=== PATIENT | male | born 1965 | race Caucasian/White ===

== ENCOUNTER 2023-10-19 14:08 | Outpatient (AMB) | payer OTHER, SELFPAY ==
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
[2023-10-19 14:18] VITALS: BP 172/84; PULSE 72; O2SAT 98; BMI 34.2
== END 2023-10-19 14:39 | disposition home or self-care (01) ==
PROVIDERS: PCP Internal Medicine; Referring Provider Internal Medicine; Visit Provider Registered Nurse Emergency
DX: M25.551 Pain in right hip (principal)
CPT/HCPCS: 99204

== ENCOUNTER → 2023-10-19 14:08 | Outpatient (BNVA) | payer OTHER, SELFPAY | PROVIDERS: PCP Internal Medicine; Referring Provider Internal Medicine; Visit Provider Registered Nurse Emergency ==

== ENCOUNTER 2023-12-12 07:20 | Outpatient (REF) | payer OTHER, SELFPAY ==
--- NOTE | ~2023-12-12 | FL_ITS ---
EXAMINATION: XR FLUOROSCOPY WITH IMAGES CLINICAL INFORMATION: Right hip pain. COMPARISON: None available. TECHNIQUE: Fluoroscopy Supervised By: Dr. Ziggy Duvall. Fluoroscopy Time: 0.2 minutes. Cumulative Dose: 5.46 mGy. DAP: 0.0949 mGym2. Images: 2. FINDINGS: Intraoperative fluoroscopy and spot films were performed during a procedure in the OR. A needle is seen in the right hip joint with intra-articular contrast media Please correlate with Dr. Duvall's report for complete details. FL/FL guidance in treatment room IMPRESSION: Intraoperative fluoroscopy and spot films were obtained. Please see Eloina's report for complete details.
== END 2023-12-12 07:21 | disposition home or self-care (01) ==
LOC: CF 07:20
PROVIDERS: Visit Provider Anesthesiology
DX: M25.551 Pain in right hip (principal)
CPT/HCPCS: 20610; J2795; J3301; Q9967

== ENCOUNTER 2023-12-12 08:08 | Outpatient (AMB) | payer OTHER, SELFPAY ==
[2023-12-12 08:09] VITALS: BP 160/80; PULSE 72; RESP 16; O2SAT 97; BMI 33.4
--- NOTE | 2023-12-12 08:09 | MHC.OFFVIS ---
Vital Signs 12/12/23 08:09 12/12/23 08:44 Height 5 ft 8 in 5 ft 8 in Weight 220 lb 220 lb BMI 33.4 33.4 BP 160/80 H 185/80 H Blood Pressure Location Rt brachial Lt brachial Position Sitting Sitting Respiration 16 16 Pulse 72 66 Pulse Source Pulse Oximeter Pulse Oximeter Pulse Oximetry (%) 97 96 Oxygen Delivery Method Room Air Room Air Comment Pre-Op post-op Intake Visit Reasons: Right Intra articular Hip injection Allergies amoxicillin [From Augmentin] Allergy (Unknown, Verified 12/12/23 08:45) cdiff aspirin Allergy (Unknown, Verified 12/12/23 08:45) Anaphylaxis clavulanic acid [From Augmentin] Allergy (Unknown, Verified 12/12/23 08:45) cdiff [facility] Medical History (Updated 10/19/23 @ 14:55 by Radha Gutierrez APRN, GROUNDS CREW SUPERVISOR) Visual impairment Shoulder pain, left Right renal stone Ptosis Plantar fasciitis JOSE (obstructive sleep apnea) Obesity (BMI 30-39.9) Neck pain Microstrabismus Lymphadenopathy IFG (impaired fasting glucose) Hypertension HLD (hyperlipidemia) Glaucoma GERD (gastroesophageal reflux disease) Ganglion cyst Elbow pain Back pain Asthma Allergic rhinitis Physical Exam Vital Signs: Last Vital Signs Pulse 66 12/12/23 08:44 Resp 16 12/12/23 08:44 BP 185/80 H 12/12/23 08:44 Pulse Ox 96 12/12/23 08:44 Oxygen Delivery Method Room Air 12/12/23 08:44 BMI result Body Mass Index 33.4 Assessment & Plan Assessment & Plan (1) Right hip pain: Code(s): M25.551 - Pain in right hip Category: Medical Plan: Right hip steroid injection. Informed consent was explained to the patient. All questions were explained and answered. The patient was taken inside of the operating room where she was positioned left lateral decubitus on operating table.. Time-out was performed delineating patient's name and date of , correct site, side, the nature of the procedure, patient's allergy, preoperative antibiotic if needed, need for VT prophylaxis.. All operating room staff was participating in OR time-out procedure. Right hip area of the patient was prepped with ChloraPrep and draped with sterile towels. C-arm was brought over the operating field and picture of left and right lateral views of the bilateral hip joints were delineated on the screen. The smaller joint silhouette was chosen as the target. Projection of the right trochanter to the skin was chosen as the initial needle insertion point. After that the skin and subcutaneous tissues was anesthetized with 2% lidocaine 2.5 mL. 22 gauge 5 in long needle was inserted through the skin and started to advance to the joint space under intermittent lateral and anterior posterior views. When needle entered the capsule of the joint small amount of the contrast was injected delineating intra-articular space. After that treatment solution containing 4 cc of ropivacaine 0.5 % and 40 mg of Kenalog was injected into the joint. The needle was withdrawn sterile dressing was applied.The patient tolerated procedure well Mary Shearer presented to the office today for evaluation and management of his chronic right hip pain. Patient has exhausted conservative therapy including PT, home exercise program, [id number] medications and muscle relaxers. Will schedule for fluoroscopy guided right intra-articular hip steroid injection with local anesthetic. Amitriptyline 25 mg p.o. at bedtime, patient advised cautions for use. All questions and concerns answered, patient agrees with plan. Follow-up after procedure, sooner if needed Orders: Orders FL guidance in treatment room Today M25.551 - Pain in right hip Coding Level of Care Code Procedure Only Diagnoses Right hip pain M25.551
[2023-12-12 08:44] VITALS: BP 185/80; PULSE 66; RESP 16; O2SAT 96; BMI 33.4
== END 2023-12-12 08:36 | disposition home or self-care (01) ==
LOC: HO.PMCPRC 08:08
PROVIDERS: PCP Internal Medicine; Visit Provider Anesthesiology
DX: M25.551 Pain in right hip (principal)
CPT/HCPCS: 20610; 77002

== ENCOUNTER 2023-12-29 10:00 | Outpatient (AMB) | payer OTHER, SELFPAY ==
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
[2023-12-29 10:04] VITALS: BP 171/92; PULSE 77; O2SAT 98; BMI 34.2
== END 2023-12-29 10:38 | disposition home or self-care (01) ==
PROVIDERS: PCP Internal Medicine; Visit Provider Registered Nurse Emergency
DX: M25.551 Pain in right hip (principal)
CPT/HCPCS: 99213

== ENCOUNTER → 2023-12-29 10:00 | Outpatient (BNVA) | payer OTHER, SELFPAY | PROVIDERS: PCP Internal Medicine; Visit Provider Registered Nurse Emergency ==